=== PATIENT | male | born 1965 | race Caucasian/White ===

== ENCOUNTER 2019-08-03 08:18 | Emergency (ER) | payer OTHER ==
[~2019-08-03] VITALS: Ht 188 cm; Wt 102.8 kg
[2019-08-03 08:25] VITALS: BP 118/76
[2019-08-03] MEDS ORDERED: MINIPRESS 5M5 MG/CAP PO (08:54)
[2019-08-03] MEDS ORDERED: DIURIL250 MG PO (08:55)
[2019-08-03] MEDS ORDERED: LIPITOR 40MG TA40 MG PO (08:55)
[2019-08-03] MEDS ORDERED: WELLBUTRIN XL300 M1 PO (08:56)
[2019-08-03] MEDS ORDERED: DESYREL 50MG50 MG PO (08:57)
[2019-08-03] MEDS ORDERED: PRINIVIL10 MG PO (08:58)
[2019-08-03 10:08] VITALS: PULSE 92; TEMP 100.8
== END 2019-08-03 10:08 | disposition home or self-care (01) ==
LOC: COL.ER 08:18
DX: J10.1 Influenza due to other identified influenza virus with other respiratory manifestations (principal); I10 Essential (primary) hypertension; F32.9 Major depressive disorder, single episode, unspecified; E78.5 Hyperlipidemia, unspecified; Z98.890 Other specified postprocedural states